=== PATIENT | male | born 1965 | race African-American/Black ===

== ENCOUNTER 2024-01-06 13:05 | Inpatient (IN) | payer MEDICAID ==
[~2024-01-06] VITALS: Ht 185.4 cm; Wt 68.2 kg
[~2024-01-06 13:05] MED LIST: ACET-66 PO; MAG30ORA11 PO; OMEP20 PO; ONDA-104 PO
[2024-01-06 14:25] LABS: BASOPHILS % (AUTO) 0.6 % (0.0-2.0); EOSINOPHILS % (AUTO) 5.1 % (1.0-6.0); HEMATOCRIT 42.5 % (41-53); HEMOGLOBIN 14.4 g/dL (13.5-17.5); LYMPHOCYTES # (AUTO) 1.7 K/uL (1.0-4.8); LYMPHOCYTES % (AUTO) 25.8 % (22.0-44.0); MEAN CORPUSCULAR HEMOGLOBIN 30.5 pg (26.0-34.0); MEAN CORPUSCULAR HGB CONC 33.9 G/dL (31.0-37.0); MEAN CORPUSCULAR VOLUME 90 fL (80-100); MONOCYTES # (AUTO) 0.7 K/uL (0.1-1.0); MONOCYTES % (AUTO) 10.3 % (2.0-9.0); NEUTROPHILS # (AUTO) 3.7 K/uL (1.8-7.7); NEUTROPHILS % (AUTO) 58.2 % (40.0-70.0); PLATELET COUNT (AUTO) 244 K/uL (150-450); RED BLOOD CELL COUNT(AUTO) 4.72 MIL/uL (4.50-5.90); WHITE BLOOD COUNT (AUTO) 6.4 K/uL (4.5-11.0)
[2024-01-06 14:45] LABS: ANION GAP 8 mmol/L (8-16); CALCIUM, TOTAL 9.3 mg/dL (8.8-10.5); CARBON DIOXIDE 31 mmol/L (22-29); CHLORIDE 95 mmol/L (98-107); GLOMERULAR FILTR. RATE CALC > 60 mL/min (>60); GLUCOSE,RANDOM 155 mg/dL (70-110); POTASSIUM 3.8 mmol/L (3.5-5.1); SODIUM SERUM 134 mmol/L (136-145); UREA NITROGEN, BLOOD 7 mg/dL (7-18)
[2024-01-06 14:51] LABS: ALANINE AMINOTRANSFERASE 54 U/L (12-78); ALBUMIN 3.2 g/dL (3.4-5.0); ALKALINE PHOSPHATASE 126 U/L (46-116); ASPARTATE AMINOTRANSFERASE 41 U/L (15-37); BILIRUBIN,TOTAL 0.9 mg/dL (0.1-1.0); TOTAL PROTEIN, SERUM 7.5 g/dL (6.4-8.2)
[2024-01-06 15:00] LABS: LIPASE 1423 U/L (16-77)
[2024-01-06] MEDS ORDERED: IOHEXOL 300 MG/ML 100 ML VIAL ONE (15:18)
[2024-01-06] MEDS ORDERED: SODIUM CHLORIDE 0.9% 100 ML ONE (15:18)
[2024-01-06] MEDS: KETOROLAC TROMETHAMINE 30 MG/ML VIAL IVP ONE (15:27)
[2024-01-06] MEDS: ACETAMINOPHEN 500 MG TABLET PO ONE (15:27)
[2024-01-06] MEDS: ONDANSETRON HCL 4 MG/2 ML VIAL IVP ONE (15:28)
[2024-01-06] MEDS: SODIUM CHLORIDE 0.9% 1,000 ML IV ONE (15:35)
[2024-01-06] MEDS ORDERED: MORPHINE SULFATE 2 MG/ML SYRINGE IVP PRN (16:30)
[2024-01-06] MEDS ORDERED: ONDANSETRON HCL 4 MG/2 ML VIAL IVP PRN (16:30)
[2024-01-06] MEDS ORDERED: ACETAMINOPHEN 325 MG TABLET PO PRN (16:30)
[2024-01-06 17:01] LABS: APPEARANCE,URINE CLEAR (CLEAR); COLOR,URINE YELLOW (YELLOW); GLUCOSE, URINE (UA) NEGATIVE (NEGATIVE); KETONES,URINE NEGATIVE (NEGATIVE); LEUKOCYTE ESTERASE ,URINE SMALL (NEGATIVE); NITRATE,URINE NEGATIVE (NEGATIVE); OCCULT BLOOD,URINE NEGATIVE (NEGATIVE); PROTEIN,URINE 30-70 mg/dL (NEGATIVE); SPECIFIC GRAVITIY, URINE 1.033 (1.003-1.030)
[2024-01-06] MEDS: PANTOPRAZOLE SODIUM 40 MG/VIAL IVP SCH (17:06)
[2024-01-06] MEDS: SODIUM CHLORIDE 0.9% 1,000 ML IV SCH (17:06)
[2024-01-06 17:07] LABS: BILIRUBIN,URINE SMALL (NEGATIVE)
[2024-01-06 17:26] LABS: BACTERIA,URINE None Seen /HPF (None Seen); HYALINE CASTS, URINE 0-2 /LPF (None Seen); RBC,URINE None Seen /HPF (0-2); SQUAMOUS EPITHELIAL CELL,UR Few /LPF (None Seen)
[2024-01-06 18:16] VITALS: BP 141/88; PULSE 87; RESP 19; TEMP 98.3
[2024-01-06] MEDS: DOCUSATE SODIUM 100 MG CAPSULE PO SCH (20:23)
[2024-01-07 06:58] VITALS: BP 140/78; PULSE 88; RESP 18; TEMP 97.7
[2024-01-07 09:12] VITALS: BP 140/94; PULSE 97; RESP 18; TEMP 98.9; O2SAT 98
[2024-01-07 16:47] VITALS: BP 132/83; PULSE 94; RESP 18; TEMP 98.2; O2SAT 99
[2024-01-07 19:18] VITALS: BP 136/87; PULSE 89; RESP 18; TEMP 97.9
[2024-01-07 20:26] VITALS: BP 137/80; PULSE 93; RESP 18; TEMP 98.1; O2SAT 99
[2024-01-08 04:22] VITALS: BP 134/80; PULSE 84; RESP 18; TEMP 98; O2SAT 98
[2024-01-08 08:45] VITALS: BP 149/87; PULSE 92; RESP 20; TEMP 98.9; O2SAT 100
[2024-01-08 16:15] VITALS: BP 126/84; PULSE 75; RESP 20; TEMP 98.6
[2024-01-08 20:02] VITALS: BP 135/88; PULSE 99; RESP 20; TEMP 99
[2024-01-09 04:51] VITALS: BP 117/67; PULSE 68; RESP 20; TEMP 98.2
[2024-01-09 08:28] VITALS: BP 140/85; PULSE 68; RESP 18; TEMP 97.5
== END 2024-01-09 20:30 | disposition home or self-care (01) | DRG 282 ==
LOC: EMS 13:47 → 6S 17:16
PROVIDERS: ADMIT Internal Medicine; ATTEND Internal Medicine
DX: K85.90 Acute pancreatitis without necrosis or infection, unspecified (principal); E44.0 Moderate protein-calorie malnutrition; K76.0 Fatty (change of) liver, not elsewhere classified; F10.10 Alcohol abuse, uncomplicated; K57.30 Diverticulosis of large intestine without perforation or abscess without bleeding; K82.8 Other specified diseases of gallbladder; K44.9 Diaphragmatic hernia without obstruction or gangrene; K40.20 Bilateral inguinal hernia, without obstruction or gangrene, not specified as recurrent; N40.0 Benign prostatic hyperplasia without lower urinary tract symptoms; Z87.891 Personal history of nicotine dependence; Z68.1 Body mass index [BMI] 19.9 or less, adult
CPT/HCPCS: 74177; 76705; 80053; 81001; 83690; 85025; 93005; 99285; C9113; J1885; J2405; J7030; J7050; Q9967